=== PATIENT | male | born 1995 | race Caucasian/White ===

== ENCOUNTER 2017-03-19 17:30 | Emergency (ER) | payer BC ==
[~2017-03-19] VITALS: Ht 182.9 cm; Wt 81.6 kg
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
[2017-03-19] MEDS ORDERED: LORazepam 1 MG TABLET PO ONE (19:00)
[2017-03-19] MEDS ORDERED: KETAMINE HCL 500 MG/10 ML VIAL. ONE (19:17)
[2017-03-19] MEDS ORDERED: KETAMINE HCL 500 MG/10 ML VIAL. IM ONE (19:30)
[2017-03-19] MEDS ORDERED: ZIPRASIDONE 20 MG CAPSULE. PO SCH (20:00)
[2017-03-19 20:24] LABS: BASO % 1 % (0-3); EOS % 1 % (0-3); HEMATOCRIT 47.1 % (39.0-53.0); HEMOGLOBIN 16.1 g/dL (13.0-17.5); LYMPH # 2.3 x10^3/uL (1.0-4.8); LYMPH % 31 % (24-48); MEAN CORPUSCULAR HEMOGLOBIN 29 pg (25-35); MEAN CORPUSCULAR HGB CONC 34 g/dL (31-37); MEAN CORPUSCULAR VOLUME 86 fL (79-100); MONO # 0.4 x10^3/uL (0.0-1.1); MONO % 6 % (0-9); NEUT # 4.6 x10^3uL (1.8-7.7); NEUT % 62 % (31-73); PLATELET COUNT 242 x10^3/uL (140-400); RED BLOOD COUNT 5.47 x10^6/uL (4.30-5.70); RED CELL DISTRIBUTION WIDTH 13.2 % (11.5-14.5); WHITE BLOOD COUNT 7.4 x10^3/uL (4.0-11.0)
[2017-03-19 20:38] LABS: ALBUMIN 4.3 g/dL (3.4-5.0); CALCIUM 9.1 mg/dL (8.5-10.1); CREATININE 1.1 mg/dL (0.7-1.3); DIRECT BILIRUBIN 0.2 mg/dL (0.0-0.2); GFR 86.2; MAGNESIUM 2.1 mg/dL (1.8-2.4); POTASSIUM 4.2 mmol/L (3.5-5.1); TOTAL BILIRUBIN 0.8 mg/dL (0.2-1.0); TOTAL PROTEIN 7.5 g/dL (6.4-8.2)
[2017-03-19 20:44] LABS: ACETAMIN < 10 mcg/mL (10-30); ETHANOL < 10 mg/dL (0-10); SALIC < 0.2 mg/dL (2.8-20.0)
[2017-03-19 21:58] LABS: AMPHETAMINE/METHAMPHETAMINE NEG (NEG); BARBITURATES NEG (NEG); BENZODIAZEPINES POS (NEG); CANNABINOIDS POS (NEG); COCAINE POS (NEG); METHADONE NEG (NEG); OPIATES NEG (NEG); PHENCYCLIDINE NEG (NEG)
[2017-03-19 22:00] VITALS: BP 126/63
[2017-03-19 22:07] LABS: BILIRUBIN,URINE NEG (NEG); CLARITY,URINE CLEAR; COLOR,URINE YELLOW; GLUCOSE,URINE NEG (NEG)
[2017-03-19 22:08] LABS: BACTERIA,URINE 0 /HPF (0-FEW); NITRITE,URINE NEG (NEG); RBC,URINE 0 /HPF (0-2); SQUAMOUS EPITHELIAL CELL,UR OCC /LPF; UROBILINOGEN,URINE 1 mg/dL (0.2 mg/dL); WBC,URINE OCC /HPF (0-4)
== END 2017-03-19 22:20 | disposition home or self-care (01) ==
LOC: ER 17:30
DX: F23 Brief psychotic disorder (principal); F22 Delusional disorders; F43.10 Post-traumatic stress disorder, unspecified; F32.9 Major depressive disorder, single episode, unspecified; Z91.14 Patient's other noncompliance with medication regimen
CPT/HCPCS: 36415; 80048; 80076; 80305; 81001; 82140; 83735; 84443; 85027; 99284; G0480; G0481

== ENCOUNTER 2017-03-20 13:01 | Emergency (ER) | payer BC ==
[~2017-03-20] VITALS: Ht 182.9 cm; Wt 85.3 kg
[2017-03-20 13:12] VITALS: BP 137/83
--- NOTE | 2017-03-20 13:37 | PHYS DOC ---
Past History Past Medical History: No Pertinent History Additional Past Medical Histor: PTSD, Past Surgical History: No Surgical History Additional Past Surgical Histo: wisdom teeth Smoking: Non-smoker Alcohol Use: None Drug Use: None Social History Narrative: PT DENIES DRUG USE Adult General Chief Complaint Chief Complaint: SUICDAL IDEATION HPI HPI This 21-year-old man comes in with a history of suicidal and homicidal ideation which he denies present. He was just in her emergency department no more than 12 hours ago with similar situation and had been evaluated by the psychiatrist search engine optimization specialist on the telepsych line They felt that he needed to be committed. The guidance Center tried to get placement but couldn't and the young man was sent home. His family is now insisting that he is suicidal and homicidal needs to involuntary commitment and they sent him by police to our emergency department. Review of Systems Review of Systems Constitutional: Denies fever or chills [] Eyes: Denies change in visual acuity, redness, or eye pain [] HENT: Denies nasal congestion or sore throat [] Respiratory: Denies cough or shortness of breath [] Cardiovascular: No additional information not addressed in HPI [] GI: Denies abdominal pain, nausea, vomiting, bloody stools or diarrhea [] : Denies dysuria or hematuria [] Musculoskeletal: Denies back pain or joint pain [] Integument: Denies rash or skin lesions [] Neurologic: Denies headache, focal weakness or sensory changes [] Endocrine: Denies polyuria or polydipsia [] Psych patient denies suicidal or homicidal thoughts Allergies Allergies Allergies Coded Allergies Type Severity Reaction Last Updated Verified Penicillins Allergy Intermediate 03/20/17 Yes Physical Exam Physical Exam Constitutional: Well developed, well nourished, no acute distress, non-toxic appearance. [] HENT: Normocephalic, atraumatic, bilateral external ears normal, oropharynx moist, no oral exudates, nose normal. [] Eyes: PERRLA, EOMI, conjunctiva normal, no discharge. [] Neck: Normal range of motion, no tenderness, supple, no stridor. [] Cardiovascular:Heart rate regular rhythm, no murmur [] Lungs & Thorax: Bilateral breath sounds clear to auscultation [] Abdomen: Bowel sounds normal, soft, no tenderness, no masses, no pulsatile masses. [] Skin: Warm, dry, no erythema, no rash. [] Back: No tenderness, no CVA tenderness. [] Extremities: No tenderness, no cyanosis, no clubbing, ROM intact, no edema. [] Neurologic: Alert and oriented X 3, normal motor function, normal sensory function, no focal deficits noted. [] Psychologic: Affect normal, this patient denies suicidal or homicidal ideation Current Patient Data Vital Signs Vital Signs Date Time Temp Pulse Resp B/P (MAP) Pulse Ox O2 Delivery O2 Flow Rate FiO2 03/20/17 13:12 97.8 70 18 100 Room Air EKG EKG [] Radiology/Procedures Radiology/Procedures [] Impressions: History of Homicidal Ideation Course & Med Decision Making Course & Med Decision Making This patient was evaluated by the case packer and mental health workers who Assisted in getting this patient admitted to [facility] for evaluation and treatment. In the interim the patient will be taken Into custody by [place] police [] Dragon Disclaimer Dragon Disclaimer This chart was dictated in whole or in part using Voice Recognition software in a busy, high-work load, and often noisy Emergency Department environment. It may contain unintended and wholly unrecognized errors or omissions. Departure Departure: Referrals: MIREILLE AMEZCUA APRN (PCP) JEREMIAS STRONG MD Mar 20, 2017 13:37
== END 2017-03-20 16:03 ==
LOC: ER 13:01
DX: R45.850 Homicidal ideations (principal); R45.851 Suicidal ideations; F43.10 Post-traumatic stress disorder, unspecified; Z88.0 Allergy status to penicillin
CPT/HCPCS: 99283